=== PATIENT | male | born 1975 | race Caucasian/White ===

== ENCOUNTER 2017-12-03 09:11 | Emergency (ER) | payer SELFPAY ==
[~2017-12-03] VITALS: Ht 170.2 cm; Wt 81.7 kg
[~2017-12-03 09:11] MED LIST: KEPPRA500 MG PO
[2017-12-03] MEDS ORDERED: DILANTIN100 MG PO (09:37)
[2017-12-03] MEDS ORDERED: NORCO 5-325 TA1 EACH PO (10:11)
[2017-12-03] MEDS ORDERED: BACTRIM DS TAB1 EACH PO (10:11)
== END 2017-12-03 10:26 | disposition home or self-care (01) ==
LOC: ED 09:11
PROC: 3E0T3BZ Introduction of Anesthetic Agent into Peripheral Nerves and Plexi, Percutaneous Approach (ICD-10-PCS; principal; 2017-12-03)
DX: L02.415 Cutaneous abscess of right lower limb (principal); F17.200 Nicotine dependence, unspecified, uncomplicated; G40.909 Epilepsy, unspecified, not intractable, without status epilepticus; Z88.8 Allergy status to other drugs, medicaments and biological substances; Z79.899 Other long term (current) drug therapy
CPT/HCPCS: 64450; 99283

== ENCOUNTER 2017-12-04 10:33 | Emergency (ER) | payer SELFPAY ==
[~2017-12-04] VITALS: Ht 170.2 cm; Wt 81.7 kg
[~2017-12-04 10:33] MED LIST changes: +BACTRIM DS TAB1 EACH PO; +DILANTIN100 MG PO; +NORCO 5-325 TA1 EACH PO
== END 2017-12-04 13:10 | disposition home or self-care (01) ==
LOC: ED 10:33
DX: S61.402A Unspecified open wound of left hand, initial encounter (principal); E11.9 Type 2 diabetes mellitus without complications; G40.909 Epilepsy, unspecified, not intractable, without status epilepticus; F17.200 Nicotine dependence, unspecified, uncomplicated; Z88.8 Allergy status to other drugs, medicaments and biological substances; Z79.899 Other long term (current) drug therapy; W34.00XA Accidental discharge from unspecified firearms or gun, initial encounter; Y93.01 Activity, walking, marching and hiking
CPT/HCPCS: 73130; 99283

== ENCOUNTER 2017-12-04 14:49 | Emergency (ER) | payer SELFPAY ==
[~2017-12-04] VITALS: Ht 170.2 cm; Wt 81.7 kg
== END 2017-12-04 16:07 | disposition home or self-care (01) ==
LOC: ED 14:49
DX: Z48.817 Encounter for surgical aftercare following surgery on the skin and subcutaneous tissue (principal); E11.9 Type 2 diabetes mellitus without complications; G40.909 Epilepsy, unspecified, not intractable, without status epilepticus; F17.200 Nicotine dependence, unspecified, uncomplicated; Z88.8 Allergy status to other drugs, medicaments and biological substances; Z79.899 Other long term (current) drug therapy
CPT/HCPCS: 99281

== ENCOUNTER 2018-03-03 15:45 | Emergency (ER) | payer OTHER ==
[~2018-03-03] VITALS: Ht 170.2 cm; Wt 81.7 kg
[2018-03-03] MEDS ORDERED: GABAPENTIN300 MG PO (16:04)
[2018-03-03] MEDS ORDERED: ATIVAN1 MG PO (18:26)
[2018-03-04] MEDS ORDERED: ATIVAN1 MG PO (12:50)
== END 2018-03-03 20:19 | disposition home or self-care (01) ==
LOC: ED 15:45
DX: G40.909 Epilepsy, unspecified, not intractable, without status epilepticus (principal); T42.0X5A Adverse effect of hydantoin derivatives, initial encounter; E11.9 Type 2 diabetes mellitus without complications; F17.200 Nicotine dependence, unspecified, uncomplicated; Z91.010 Allergy to peanuts; Z88.8 Allergy status to other drugs, medicaments and biological substances; Z79.899 Other long term (current) drug therapy
CPT/HCPCS: 70450; 80053; 80185; 85025; 96361; 96374; 96375; 96376; 99284; J1953; J2060; J7030

== ENCOUNTER 2018-03-04 11:39 | Emergency (ER) | payer OTHER ==
[~2018-03-04] VITALS: Ht 170.2 cm; Wt 86.2 kg
[~2018-03-04 11:39] MED LIST changes: +ATIVAN1 MG PO; +GABAPENTIN300 MG PO
--- OUTSIDE RECORDS SUMMARY | 2018-03-04 12:00 | XMS | Encounter Summary ---
Demographics + + + | Address | [address] | | | [place] [address] | + + + | Home Phone | | + + + | Preferred Language | Unknown | + + + | Marital Status | Single | + + + | Sikh Affiliation | Unknown | + + + | Race | Unknown | + + + | Ethnic Group | Unknown | + + + Author + + + | Author | [facility] | | | and Carlosana | + + + | Organization | [facility] | | | and Carlosana | + + + | Address | Unknown | + + + | Phone | Unavailable | + + + Support + + + + + | Name | Relationship | Address | Phone | + + + + + | Per Patient,None | ECON | [address] | | | | | [place], [place] | | | | | [address] | | + + + + + Care Team Providers + +------+ + | Care End Packer Name | Role | Phone | + +------+ + | No, Physician | PCP | Unavailable | + +------+ + Reason for Visit + + + | Reason | Comments | + + + | ER Follow-up | | + + + Encounter Details +--------+ + + + + | Date | Type | Department | Care Team | Description | +--------+ + + + + | 01/28/ | Telephone | [facility] | No, Physician | ER Follow-up | | 2017 | | [facility]PITAL [facility] | | | | | | CENTER [address] | | | | | | [address] [place], [place] | | | | | | [address] | | | | | | [phone] | | | +--------+ + + + + Social History + +-------+ +--------+------+ | Tobacco Use | Types | Packs/Day | Years | Date | | | | | Used | | + +-------+ +--------+------+ | Current Some Day | | | | | | Smoker | | | | | + +-------+ +--------+------+ + +---+---+---+ | Smokeless Tobacco: | | | | | Never Used | | | | + +---+---+---+ + + + | Sex Assigned at | Date Recorded | | | | + + + | Not on file | | + + + as of this encounter Plan of Treatment Not on fileas of this encounter Visit Diagnoses Not on filein this encounter"
--- OUTSIDE RECORDS SUMMARY | 2018-03-04 12:00 | XMS | Encounter Summary ---
Demographics + + + | Address | [address] | | | [place] [address] | + + + | Home Phone | | + + + | Preferred Language | Unknown | + + + | Marital Status | Single | + + + | Sabianist Affiliation | Unknown | + + + | Race | Unknown | + + + | Ethnic Group | Unknown | + + + Author + + + | Author | [facility] | | | and Carlosana | + + + | Organization | and [facility] | | | and a[place] | + + + | Address | Unknown | + + + | Phone | Unavailable | + + + Support + + + + + | Name | Relationship | Address | Phone | + + + + + | Per Patient,None | ECON | [address] | | | | | [place], [place] | | | | | [address] | | + + + + + Care Team Providers + +------+ + | Care Folder Hand Name | Role | Phone | + +------+ + | No, Physician | PCP | Unavailable | + +------+ + Reason for Visit +--------+ + | Reason | Comments | +--------+ + | Wound | | +--------+ + Encounter Details +--------+ + + + + | Date | Type | Department | Care Team | Description | +--------+ + + + + | 12/19/ | Emergency | [facility] | Rome Muhammad | Cellulitis of right | | 2018 | | HOSPITAL EMERGENCY | DO [address] | lower extremity | | | | CENTER [address] | [address] | (Primary Dx) | | | | [address] [place], [place] | [place] [address] | | | | | [address] | [phone] | | | | | [phone] | | | +--------+ + + + + Social History + +-------+ +--------+------+ | Tobacco Use | Types | Packs/Day | Years | Date | | | | | Used | | + +-------+ +--------+------+ | Never Assessed | | | | | + +-------+ +--------+------+ + + + | Sex Assigned at | Date Recorded | | | | + + + | Not on file | | + + + as of this encounter Last Filed Vital Signs + + + + | Vital Sign | Reading | Time Taken | + + + + | Blood Pressure | 121/80 | 12/19/20171150 PST | + + + + | Pulse | 86 | 12/19/20171150 PST | + + + + | Temperature | 36.5 C (97.7 F) | 12/19/20171150 PST | + + + + | Respiratory Rate | 18 | 12/19/20171150 PST | + + + + | Oxygen Saturation | 100% | 12/19/20171150 PST | + + + + | Inhaled Oxygen | - | - | | Concentration | | | + + + + | Weight | 72.6 kg (160 lb) | 12/19/20171150 PST | + + + + | Height | 165.1 cm (5' 5") | 12/19/20171150 PST | + + + + | Body Mass Index | 26.63 | 12/19/20171150 PST | + + + + in this encounter Discharge Instructions Rome Muhammad DO - 12/19/2017Return to the ER for fevers or severe pain. The following attachments cannot be sent through Care Everywhere.Skin Infection, Cellulitis (Ghanaian)in this encounter Medications at Time of Discharge + + +---------+---------+ + + | Medication | Sig. | Disp. | Refills | Start | End Date | | | | | | Date | | + + +---------+---------+ + + | levETIRAcetam | Take 500 mg by mouth | | | | | | (KEPPRA) 500 mg | 3 times daily. | | | | | | tablet | | | | | | + + +---------+---------+ + + | phenytoin | Take 200 mg by mouth | | | | | | (DILANTIN) 100 mg ER | 3 times daily. | | | | | | capsule | | | | | | + + +---------+---------+ + + | | Take 1 tablet by | | | | | | sulfamethoxazole-tri | mouth 2 times daily. | | | | | | methoprim (BACTRIM | | | | | | | DS) 800-160 mg per | | | | | | | tablet | | | | | | + + +---------+---------+ + + | cephalexin | Take 2 capsules by | 40 | 0 | 12/19/19 | | | (KEFLEX) 500 mg | mouth 2 times daily | capsule | | 18 | 8 | | capsule | for 10 days. | | | | | + + +---------+---------+ + + as of this encounter Plan of Treatment Not on fileas of this encounter Visit Diagnoses + + | Diagnosis | + + | Cellulitis of right lower extremity - Primary | + + | Cellulitis and abscess of leg, except foot | + +
--- OUTSIDE RECORDS SUMMARY | 2018-03-04 12:00 | XMS | Encounter Summary ---
Demographics + + + | Address | [address] | | | [place] [address] | + + + | Home Phone | | + + + | Preferred Language | Unknown | + + + | Marital Status | Single | + + + | Yazdanism Affiliation | Unknown | + + + | Race | Unknown | + + + | Ethnic Group | Unknown | + + + Author + + + | Author | [facility] | | | and Carlosana | + + + | Organization | [facility] | | | and Carlosana | [...] [place], [place] | | | | | [address] | | + + + + + Care Team Providers + +------+ + | Care Steel Pourer Helper Name | Role | Phone | + [...] [place] | | | | | | [address] | | | | | | [phone] | | | +--------+ + + + [...]
--- OUTSIDE RECORDS SUMMARY | 2018-03-04 12:00 | XMS | Encounter Summary ---
Demographics + + + | Address | [address] | | | [place] [address] | + + + | Home Phone | | + + + | Preferred Language | Unknown | + + + | Marital Status | Single | + + + | Samaritan Affiliation | Unknown | + + + | Race | Unknown | + + + | Ethnic Group | Unknown | + + + Author + + + | Author | [facility] | | | and Carlosana | + + + | Organization | [facility] | | | and Carlosana [...] [place], [place] | | | | | [address] | | + + + + + Care Team Providers + +------+ + | Care Telemetry Tech Name | Role | Phone | + [...] | | | [address] [place], [place] | [place] [address] | | | | | [address] | [phone] | | | | | [phone] | | | +--------+ + + + [...] be sent through Care Everywhere.Skin Infection, Cellulitis (Bhutanese)in this encounter Medications at Time of Discharge [...]
--- OUTSIDE RECORDS SUMMARY | 2018-03-04 12:00 | XMS | Clinical Summary ---
Demographics + + + | Address | [address] | | | [place] [address] | + + + | Home Phone | | + + + | Preferred Language | Unknown | + + + | Marital Status | Single | + + + | Restoration Affiliation | Unknown | + + + | Race | Unknown | + + + | Ethnic Group | Unknown | + + + Author + + + | Author | [facility] | | | and Carlosana | + + + | Organization | [facility] | | | and [place] | + + + | Address | Unknown | + + + | Phone | Unavailable | + + + Support + + + + + | Name | Relationship | Address | Phone | + + + + + | Per Patient,None | ECON | [address] | | | | | [place], [place] | | | | | [address] | | + + + + + Care Team Providers + +------+ + | Care Clinical Informatics Physician Name | Role | Phone | + +------+ + | No, Physician | PP | Unavailable | + +------+ + Allergies + + + + + + | Active Allergy | Reactions | Severity | Noted | Comments | | | | | Date | | + + + + + + | Magnesium | | | 12/19/19 | | | | | | 18 | | + + + + + + | Pseudoephedrine | | | 12/19/19 | | | | | | 18 | | + + + + + + Current Medications + + +-------+---------+------+------+-------+ | Prescription | Sig. | Disp. | Refills | Star | End | Statu | | | | | | t | Date | s | | | | | | Date | | | + + +-------+---------+------+------+-------+ | levETIRAcetam | Take 500 mg by mouth | | | | | Activ | | (KEPPRA) 500 mg | 3 times daily. | | | | | e | | tablet | | | | | | | + + +-------+---------+------+------+-------+ | phenytoin | Take 200 mg by mouth | | | | | Activ | | (DILANTIN) 100 mg ER | 3 times daily. | | | | | e | | capsule | | | | | | | + + +-------+---------+------+------+-------+ | | Take 1 tablet by | | | | | Activ | | sulfamethoxazole-tri | mouth 2 times daily. | | | | | e | | methoprim (BACTRIM | | | | | | | | DS) 800-160 mg per | | | | | | | | tablet | | | | | | | + + +-------+---------+------+------+-------+ Active Problems No known active problems Encounters +--------+ + + + + | Date | Type | Specialty | Care Team | Description | +--------+ + + + + | 01/28/ | Telephone | | No, Physician | ER Follow-up | | 2017 | | | | | +--------+ + + + + | 01/23/ | Emergency | | Cesar Clement | Seizure (HCC) | | 2017 | | | MD [address] | (Primary Dx); | | | | | | Noncompliance with | | | | | | medication regimen; | | | | | | Subtherapeutic serum | | | | | | dilantin level | +--------+ + + + + | 12/19/ | Emergency | | Rome Muhammad | Cellulitis of right | | 2017 | | | DO [address] | lower extremity | | | | | | (Primary Dx) | +--------+ + + + + from Last 3 Months Social History + +-------+ +--------+------+ | Tobacco [...] on file | | + + + Last Filed Vital Signs + + + + | Vital Sign | Reading | Time Taken | + + + + | Blood Pressure | 118/87 | 01/23/2018 1330 PDT | + + + + | Pulse | 80 | 01/23/2018 1338 PDT | + + + + | Temperature | 37.3 C (99.2 F) | 01/23/2018 1405 PDT | + + + + | Respiratory Rate | 24 | 01/23/20181337 PDT | + + + + | Oxygen Saturation | 95% | 01/23/20181337 PDT | + + + + | Inhaled Oxygen | - | - | | Concentration | | | + + + + | Weight | 80.7 kg (178 lb) | 01/23/20181134 PDT | + + + + | Height | 172.7 cm (5' 8") | 01/23/20185 PDT | + + + + | Body Mass Index | 27.06 | 01/23/2018 1135 PDT | + + + + Plan of Treatment + + + + + | Health Maintenance | Due Date | Last Done | Comments | + + + + + | Vaccine: | | | | | Dtap/Tdap/Td (1 - | 4 | | | | Tdap) | | | | + + + + + | Vaccine: | | | | | Pneumococcal 19-64 | 4 | | | | (PPSV23 only) Medium | | | | | Risk (1 of 1 - | | | | | PPSV23) | | | | + + + + + | Vaccine: Influenza | | | | | (Season Ended) | 8 | | | + + + + + Results ECG - EXTERNAL SCAN (01/25/2018) + + | Narrative | + + | Ordered by an unspecified provider. | + + Phenytoin Level, Total (01/23/2018 1150) + + + + | Component | Value | Ref Range | + + + + | DATE OF LAST DOSE | 1700 | | + + + + | TIME OF LAST DOSE | 01/22/18 | | + + + + | DILANTIN | 6.0 (L) | 10.0 - 20.0 ug/mL | + + + + + + + | Specimen | Performing Laboratory | + + + | Blood | [facility] [address] [facility], | | | [place] [address] | + + + POC Glucose (01/23/2018 1141) + +-------+ + | Component | Value | Ref Range | + +-------+ + | Glucose, POC | 90 | 70 - 110 mg/dL | + +-------+ + + + + | Specimen | Performing Laboratory | + + + | Blood | [facility] [address] [facility], | | | [place] [address] | + + + from Last 3 Months
--- OUTSIDE RECORDS SUMMARY | 2018-03-04 12:00 | XMS | Clinical Summary ---
Demographics + + + | Address | [address] | | | [place] [address] | + + + | Home Phone | | + + + | Preferred Language | Unknown | + + + | Marital Status | Single | + + + | Spiritism Affiliation | Unknown | + + + | Race | Unknown | + + + | Ethnic Group | Unknown | + + + Author + + + | Author | [facility] | | | and Carlosana | + + + | Organization | [facility] [...] [place], [place] | | | | | [address] | | + + + + + Care Team Providers + +------+ + | Care Geological Drafter Name | Role | Phone | + [...] | + + + | Blood | [facility] [address] [facility], | | | [place] [address] | + + + POC Glucose (01/23/2018 1141) + +-------+ + | Component | Value | Ref Range | + +-------+ + | Glucose, POC | 90 | 70 - 110 mg/dL | + +-------+ + + + + | Specimen | Performing Laboratory | + + + | Blood | [facility] [address] [facility], | | | [place] [address] | + + + from Last 3 Months
--- OUTSIDE RECORDS SUMMARY | 2018-03-04 12:00 | XMS | Encounter Summary ---
Demographics + + + | Address | [address] | | | [place] [address] | + + + | Home Phone | | + + + | Preferred Language | Unknown | + + + | Marital Status | Single | + + + | Quaker Affiliation | Unknown | + + + | Race | Unknown | + + + | Ethnic Group | Unknown | + + + Author + + + | Author | [facility] | | | and Carlosana | + + + | Organization | [facility] | | | and Carlosana [...] [place], [place] | | | | | [address] | | + + + + + Care Team Providers + +------+ + | Care Cotton Roll Packer Name | Role | Phone | + +------+ + | No, Physician | PCP | Unavailable | + +------+ + Reason for Visit + + + | Reason | Comments | + + + | Seizure (Adult - | | | Actively Seizing On | | | Arrival) | | + + + Encounter Details +--------+ + + + + | Date | Type | Department | Care Team | Description | +--------+ + + + + | 01/23/ | Emergency | [facility] | Cesar Clement | Seizure (HCC) | | 2018 | | HOSPITAL EMERGENCY | MD [address] | (Primary Dx); | | | | CENTER [address] | [address] | Noncompliance with | | | | [address] [place], [place] | [place] [address] | medication regimen; | | | | [address] | [phone] | Subtherapeutic serum | | | | [phone] | | dilantin level | +--------+ + + + + Social [...] | 37.3 C (99.2 F) | 01/23/2018 140 PDT | + + + + | [...] 1135 PDT | + + + + in this encounter Discharge Instructions Cesar Clement MD - 01/23/2018You need to take all of your medications as prescribe d. You PCP or Neurologist needs to be contacted for follow-up. The following attachments cannot be sent through Care Everywhere.Seizure, Recurrent (Adult) (Yoruba)in this encounter Medications at Time of Discharge + + +-------+---------+--------+ + | Medication | Sig. | Disp. | Refills | Start | End Date | | | | | | Date | | + + +-------+---------+--------+ + | levETIRAcetam | Take 500 mg by mouth | | | | | | (KEPPRA) 500 mg | 3 times daily. | | | | | | tablet | | | | | | + + +-------+---------+--------+ + | phenytoin | Take 200 mg by mouth | | | | | | (DILANTIN) 100 mg ER | 3 times daily. | | | | | | capsule | | | | | | + + +-------+---------+--------+ + | | Take 1 tablet by | | | | | | sulfamethoxazole-tri | mouth 2 times daily. | | | | | | methoprim (BACTRIM | | | | | | | DS) 800-160 mg per | | | | | | | tablet | | | | | | + + +-------+---------+--------+ + as of this encounter Plan of Treatment + +--------+ + + | Name | Priori | Associated Diagnoses | Date/Time | | | ty | | | + +--------+ + + | ED INFORMATION EXCHANGE | Routin | | 01/23/2018 1135 PDT | | | e | | | + +--------+ + + as of this encounter Results ECG - EXTERNAL SCAN (01/25/2018) + [...] | + + + | Blood | [facility] [address] [facility] [place], | | | [place] [address] | + + + POC Glucose (01/23/20181140) + +-------+ + | Component | Value | Ref Range | + +-------+ + | Glucose, POC | 90 | 70 - 110 mg/dL | + +-------+ + + + + | Specimen | Performing Laboratory | + + + | Blood | [facility] [address] [place], | | | [place] [address] | + + + in this encounter Visit Diagnoses + + | Diagnosis | + + | Seizure (HCC) - Primary | + + | Other convulsions | + + | Noncompliance with medication regimen | + + | Personal history of noncompliance with medical treatment, presenting hazards to health | + + | Subtherapeutic serum dilantin level | + + | Other abnormal blood chemistry | + + Administered Medications + +--------+---------+------+------+------+ | Medication Order | MAR | Action | Dose | Rate | Site | | | Action | Date | | | | + +--------+---------+------+------+------+ + +---+ | phenytoin (DILANTIN) 50 mg/mL | | | injection Starting 01/23/18 | | | at 1239, For 1 dose, KARINA, | | | JODIE Mae: jen cooper | | + +---+ | | | + +---+ + +-------+ +--------+---+ + | phenytoin (DILANTIN) injection | Given | | 600 mg | | Left Arm | | 600 mg 600 mg, Intravenous, | | 8 12:49 | | | | | ONCE, 01/23/18 at 1415, For 1 | | PDT | | | | | dose, Maximum infusion rate = 50 | | | | | | | mg/min. | | | | | | + +-------+ +--------+---+ + +---+---+ | | | +---+---+ in this encounter
--- OUTSIDE RECORDS SUMMARY | 2018-03-04 12:00 | XMS | Encounter Summary ---
Demographics + + + | Address | [address] | | | [place] [address] | + + + | Home Phone | | + + + | Preferred Language | Unknown | + + + | Marital Status | Single | + + + | Confucianism Affiliation | Unknown | + + + | Race | Unknown | + + + | Ethnic Group | Unknown | + + + Author + + + | Author | [facility] | | | and Carlosana | + + + | Organization | [facility] | | | and [...] [place], [place] | | | | | [address] | | + + + + + Care Team Providers + +------+ + | Care Director Energy Name | Role | Phone | + [...] | [address] [place], [place] | [place] [address] | medication regimen; | | | | [address] | [phone] | Subtherapeutic serum | | | | [phone] | | dilantin level | +--------+ + [...] be sent through Care Everywhere.Seizure, Recurrent (Adult) (Icelandic)in this encounter Medications at Time of Discharge [...] | + + + | Blood | [facility] [address] [facility], | | | [place] [address] | + + + POC Glucose (01/23/20181140) + +-------+ + | Component | Value | Ref Range | + +-------+ + | Glucose, POC | 90 | 70 - 110 mg/dL | + +-------+ + + + + | Specimen | Performing Laboratory | + + + | Blood | [facility] [address] [place], | | | [place] [address] | + + + in this encounter [...]
[2018-03-04] MEDS ORDERED: ATIVAN1 MG PO (12:50)
--- NOTE | 2018-03-04 13:17 | NUR ---
Patient was seen in ED room. Patient has currently been released from long-term. He stated him and his are going to move out of the area and that he has a place to go to after discharge. He stated he will be going to [employer] to apply for foodstamps today. CHW stated she will have Carolina contact him and or he can call CHW to apply for Medicaid benefits, so he can follow up with his PCP for his seizures. Patient stated he will contact CHW when he available to apply for Medicaid.
== END 2018-03-04 13:17 | disposition home or self-care (01) ==
LOC: ED 11:39
DX: G40.909 Epilepsy, unspecified, not intractable, without status epilepticus (principal); E11.9 Type 2 diabetes mellitus without complications; Z91.010 Allergy to peanuts; Z88.8 Allergy status to other drugs, medicaments and biological substances; Z79.899 Other long term (current) drug therapy
CPT/HCPCS: 80185; 99283

== ENCOUNTER 2018-05-04 19:27 | Emergency (ER) | payer OTHER ==
[~2018-05-04] VITALS: Ht 170.2 cm; Wt 86.2 kg
== END 2018-05-04 21:48 | disposition home or self-care (01) ==
LOC: ED 19:27
DX: S40.011A Contusion of right shoulder, initial encounter (principal); S00.83XA Contusion of other part of head, initial encounter; G40.909 Epilepsy, unspecified, not intractable, without status epilepticus; Z91.19 Patient's noncompliance with other medical treatment and regimen; W22.8XXA Striking against or struck by other objects, initial encounter; Z88.8 Allergy status to other drugs, medicaments and biological substances; Z91.010 Allergy to peanuts; Z79.899 Other long term (current) drug therapy; E11.9 Type 2 diabetes mellitus without complications
CPT/HCPCS: 36415; 70450; 73030; 80053; 80185; 85025; 99284

== ENCOUNTER 2018-06-21 14:46 | Emergency (ER) | payer OTHER ==
[~2018-06-21] VITALS: Ht 170.2 cm; Wt 86.2 kg
--- OUTSIDE RECORDS SUMMARY | ~2018-06-21 | XMS | Clinical Summary ---
Demographics + + + | Address | [address] | | | [place] [address] | + + + | Home Phone | | + + + | Preferred Language | Unknown | + + + | Marital Status | Single | + + + | Zoroastrian Affiliation | Unknown | + + + | Race | Unknown | + + + | Ethnic Group | Unknown | + + + Author + + + | Author | [facility] | | | and Carlosana | + + + | Organization | [facility] | | | and Carlosana [...] [place], [place] | | | | | [address] | | + + + + + Care Team Providers + +------+ + | Care Food Demonstrator Name | Role | Phone | + [...]
--- OUTSIDE RECORDS SUMMARY | ~2018-06-21 | XMS | Clinical Summary ---
Demographics + + + | Address | [address] | | | [place] [address] | + + + | Home Phone | | + + + | Preferred Language | Unknown | + + + | Marital Status | Single | + + + | Zoroastrian Affiliation | Unknown | + + + | Race | Unknown | + + + | Ethnic Group | Unknown | + + + Author + + + | Author | [facility] | | | and Carlosana | + + + | Organization | [facility] | | | and Carlosana [...] [place], [place] | | | | | [address] | | + + + + + Care Team Providers + +------+ + | Care Regional Maintenance Manager Name | Role | Phone | + [...]
[2018-06-21] MEDS ORDERED: CYMBALTA30 MG PO (15:14)
[2018-06-21] MEDS ORDERED: PHENYTOIN SODI100 MG PO (15:16)
== END 2018-06-21 17:09 | disposition home or self-care (01) ==
LOC: ED 14:46
DX: G40.909 Epilepsy, unspecified, not intractable, without status epilepticus (principal); E11.9 Type 2 diabetes mellitus without complications; Z91.010 Allergy to peanuts; Z88.8 Allergy status to other drugs, medicaments and biological substances; Z79.899 Other long term (current) drug therapy
CPT/HCPCS: 80053; 80185; 81001; 82542; 85025; 96365; 99284; G0480; J1953; J7030

== ENCOUNTER 2018-09-10 21:33 | Emergency (ER) | payer OTHER ==
[~2018-09-10] VITALS: Ht 175.3 cm; Wt 86.2 kg
--- OUTSIDE RECORDS SUMMARY | ~2018-09-10 | XMS | Clinical Summary ---
Demographics + + + | Address | [address] | | | [place] [address] | + + + | Home Phone | | + + + | Preferred Language | Unknown | + + + | Marital Status | Single | + + + | Gnosticism Affiliation | Unknown | + + + | Race | Unknown | + + + | Ethnic Group | Unknown | + + + Author + + + | Author | [facility] | | | and [place] | + + + | Organization | [facility] | | | and [place] | [...] [place], [place] | | | | | [address] | | + + + + + Care Team Providers + +------+ + | Care Ehr Trainer Name | Role | Phone | + [...] +-------+---------+------+------+-------+ Active Problems No known active problems Social History + +-------+ +--------+------+ | Tobacco [...] Height | 172.7 cm (5' 8") | 01/23/20181134 PDT | + + + + | Body Mass Index | 27.06 | 01/23/20181134 PDT | + + + + Plan [...] Vaccine: Influenza | | | | | (#1) | 8 | | | + + + + + Results Not on filefrom Last 3 Months
--- OUTSIDE RECORDS SUMMARY | ~2018-09-10 | XMS | Clinical Summary ---
Demographics + + + | Address | [address] | | | [place] [address] | + + + | Home Phone | | + + + | Preferred Language | Unknown | + + + | Marital Status | Single | + + + | Moravian Affiliation | Unknown | + + + | Race | Unknown | + + + | Ethnic Group | Unknown | + + + Author + + + | Author | [facility] | | | and [place] | + + + | Organization | [facility] | | | and [place] [...] [place], [place] | | | | | [address] | | + + + + + Care Team Providers + +------+ + | Care Direct Care Professional Name | Role | Phone | + [...]
[~2018-09-10 21:33] MED LIST changes: +CYMBALTA30 MG PO; +PHENYTOIN SODI100 MG PO
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
== END 2018-09-11 00:27 | disposition home or self-care (01) ==
LOC: ED 21:33
DX: R56.9 Unspecified convulsions (principal); E11.9 Type 2 diabetes mellitus without complications; Z87.891 Personal history of nicotine dependence; Z91.010 Allergy to peanuts; Z88.8 Allergy status to other drugs, medicaments and biological substances; Z79.899 Other long term (current) drug therapy
CPT/HCPCS: 80053; 80185; 81001; 85025; 96374; 99285; J2060

== ENCOUNTER 2021-09-25 20:02 | Emergency (ER) | payer OTHER ==
[~2021-09-25] VITALS: Ht 175.3 cm; Wt 90.0 kg
--- OUTSIDE RECORDS SUMMARY | 2021-09-25 20:10 | XMS ---
PreManage Notification: SUSI LNADERS Security Credit Investigator Events No recent Security Events currently on file CRITERIA MET - Group Notification CARE PROVIDERS There are no care providers on record at this time. Vikas has no Care Guidelines for this patient. Bear VISIT COUNT (12 MO.) 1 GENEVIEVE [facility] TOTAL 1 NOTE: Visits indicate total known visits. ED/UCC VISIT TRACKING (12 MO.) 09/25/2021 20:03 [facility]E [place] TYPE: Emergency COMPLAINT: - UNRESPONSIVE INPATIENT VISIT TRACKING (12 MO.) No inpatient visits to display in this time frame [email or web address]
== END 2021-09-25 23:08 ==
LOC: ED 20:02
DX: I46.9 Cardiac arrest, cause unspecified (principal); E11.9 Type 2 diabetes mellitus without complications; Z87.891 Personal history of nicotine dependence; Z91.010 Allergy to peanuts; Z88.8 Allergy status to other drugs, medicaments and biological substances; Z79.899 Other long term (current) drug therapy
CPT/HCPCS: 92950; 96374; 96375; 99285-25; J0171; J2310